=== PATIENT | female | born 1955 | race Caucasian/White ===

== ENCOUNTER 2021-11-13 14:33 | Emergency (ER) | payer MEDICARE ==
[2021-11-13 15:22] LABS: BILIRUBIN Negative (Negative); BLOOD Negative (Negative); CLARITY Clear (Clear); COLOR Yellow (Yellow); GLUCOSE Negative (Negative); KETONE Negative (Negative); LEUKO ESTERASE Negative (Negative); NITRITE Negative (Negative); SPECIFIC GRAVITY <= 1.005 (1.001-1.030); UROBILINOGEN 0.2 E.U./dl (0.0-1.0)
[2021-11-13 15:45] LABS: RBC 0-2 rbc/hpf (0-2)
== END 2021-11-13 18:08 | disposition home or self-care (01) ==
LOC: ED 14:33
PROVIDERS: Nurse Practitioner Family
DX: S01.01XA Laceration without foreign body of scalp, initial encounter (principal); M54.50 Low back pain, unspecified; R31.9 Hematuria, unspecified; Z88.2 Allergy status to sulfonamides; Z88.8 Allergy status to other drugs, medicaments and biological substances; W01.0XXA Fall on same level from slipping, tripping and stumbling without subsequent striking against object, initial encounter; Y93.89 Activity, other specified; Y92.89 Other specified places as the place of occurrence of the external cause; Y99.8 Other external cause status